=== PATIENT | male | born 1995 | race Caucasian/White ===

== ENCOUNTER 2023-01-16 09:37 | Emergency (ER) | payer OTHER ==
[~2023-01-16] VITALS: Ht 165.1 cm; Wt 81.6 kg
[2023-01-16 11:08] LABS: HEMATOCRIT 45.4 % (39.0-48.0); HEMOGLOBIN 15.2 g/dL (13-16.00); MEAN CELL VOLUME 87.5 fL (80.0-100.00); MEAN CORPUSCULAR HEMOGLOBIN 29.4 pg (27.00-32.0); MEAN CORPUSCULAR HGB CONC 33.6 g/dl (32.0-36.0); PLATELET COUNT 258 K/uL (150-450); RED BLOOD COUNT 5.18 M/uL (4.00-6.00); RED CELL DISTRIBUTION WIDTH 12.5 % (11.5-14.5)
[2023-01-16 11:17] LABS: URINE APPEARANCE Clear; URINE BILIRRUBIN Negative (NEGATIVE); URINE BLOOD Negative; URINE COLOR Yellow; URINE GLUCOSE Negative (NEGATIVE); URINE LEUKOCYTE Negative; URINE NITRATE Negative; URINE PROTEIN Trace (NEGATIVE)
[2023-01-16 11:21] LABS: URINE BACTERIA 21.4 uL (0.0-1933); URINE EPITHELIAL CELLS 3.3 uL (0.0-38.8); URINE RBC 6.6 uL (0.0-20.8); URINE WBC 3.5 uL (0.0-23.2)
[2023-01-16 12:02] LABS: CALCIUM 9.2 mg/dL (8.5-10.1); CREATININE SERUM 0.91 mg/dL (0.70-1.30); GFR 101.51; POTASSIUM 3.9 mEq/L (3.5-5.1)
[2023-01-16] MEDS ORDERED: PEPCID AC20 MG PO (13:11)
[2023-01-16] MEDS ORDERED: DICY20TA PO (13:11)
== END 2023-01-16 13:20 | disposition home or self-care (01) ==
LOC: ER 09:37
PROVIDERS: General Practice
DX: R10.9 Unspecified abdominal pain (principal); R11.2 Nausea with vomiting, unspecified; M54.50 Low back pain, unspecified